=== PATIENT | female | born 1970 | race Caucasian/White ===

== ENCOUNTER 2016-10-23 07:28 | Day surgery (SDC) | payer OTHER ==
[~2016-10-23] VITALS: Ht 165.1 cm; Wt 90.0 kg
[~2016-10-23 07:28] MED LIST: ALBU8.5H2 INHALATION; ALPR0.5T8 PO; ASCO100089 PO; ASPI-973 PO; CHOL500011 PO; CITA20TA11 PO; DOXY100C2 PO; FAMO20TA4 PO; FLUT12AE8 IH; FLUT15.88 NS; HYDR-3825 PO; IPRA0.2S51 IH; LAMO25TA PO; LIP40 PO; Lactated Ringer's 1,000 ML IV ONE; MECL-114 PO
[2016-10-23] MEDS ORDERED: Ketamine 10 mg/mL 20 mL Inj ONE (07:29)
[2016-10-23] MEDS ORDERED: Propofol 10,000 mCg/mL 20 mL Inj ONE (07:29)
[2016-10-23 08:00] VITALS: BP 130/92; PULSE 84; RESP 16; O2SAT 96
--- NOTE | 2016-10-23 08:22 | PCM.HPANE ---
Patient Data Surgeon Admitting Provider: Attending Provider:Tari Herrera MD Primary Care Physician:Yrn Ochoa MD Other Provider:Yuliana Whiting Anesthesia Reason for Visit GERD Ht/WT & BMI Height (Feet): 5 Height (Inches): 5 Weight (Kilograms): 90 Body Mass Index 33.00 Allergies Coded Allergies: red dye (Verified Allergy, Severe, 10/23/16) sulfamethoxazole (Verified Allergy, Severe, Hives, 10/23/16) trimethoprim (Verified Allergy, Severe, Hives, 10/23/16) egg (Verified Allergy, Unknown, 10/23/16) duloxetine (Verified Adverse Reaction, Severe, 10/23/16) out of body feeling ibuprofen (Verified Adverse Reaction, Severe, 10/23/16) irritibility morphine (Verified Adverse Reaction, Severe, 10/23/16) irritibility Past Anesthesia History Anesthesia History: Denies:: Abnormal Airway, Anesthesia Reactions, Difficult Intubation, Fam Anesthesia Reaction, Fam Malignant Hypertherm, Malignant Hyperthermia Diabetes History Hx Diabetes?: No MRSA MRSA: No Medications Blood Thinner: Aspirin Reported Medications Fluticasone Propionate (Flovent HFA 110 mcg)12 Gm Aer.w.adap1 Puff IH BID #12 GM Ref 0 10/22/16 Ascorbic Acid (Vitamin C)1,000 Mg Tab.chew1,000 Mg PO DAILY Ref 0 12/07/15 Albuterol HFA (Proair HFA)8.5 Gm Hfa.aer.ad2 Puffs INHALATION Q4H PRN For Shortness of Breath #1 INHALER 12/07/15 Meclizine (Bonine)25 Mg Tab.chew25 Mg PO TID PRN For Dizziness 12/07/15 Atorvastatin (Lipitor)40 Mg Wdsbuc33 Mg PO DAILY Ref 0 12/07/15 Lamotrigine 25 Mg Kqbsgw60 Mg PO DAILY Ref 0 12/07/15 Hydrocodone-Acetaminophen 7.5-325 mg 1 Each Tablet1 Tablet PO QID PRN For Pain Ref 0 12/07/15 Fluticasone Propionate 50 Mcg/Actuation [place].susp2 [place] NS DAILY 12/07/15 Famotidine 20 Mg Fdrhzx68 Mg PO BID Ref 0 12/07/15 Citalopram 20 Mg Hcasvy93 Mg PO DAILY Ref 0 12/07/15 Cholecalciferol (Vitamin D3) (Vitamin D3)5,000 Unit Tablet5,000 Unit PO DAILY 12/07/15 Aspirin 81 Mg Qipqjh17 Mg PO DAILY Ref 0 12/07/15 Alprazolam 0.5 Mg Tablet0.5 Mg PO TID PRN For Anxiety Ref 0 12/07/15 Discontinued Reported Medications Ipratropium [place] (Ipratropium [place] Inhalant Solution)0.2 Mg/1 Ml Solution3 Ml IH QID Ref 0 10/22/16 Doxycycline Hyclate 100 Mg Rkifaez337 Mg PO BID 10/22/16 History History of ENT Problems?: No HEENT History: Denies:: Abnormal Airway Difficult Intubation Dysphagia Hearing Problem Denture Type: None Teeth Condition: Within Normal Limits Hx of Heart Problems?: Yes Cardiovascular History: Denies:: AICD Pacemaker Valvular Heart Disease Hx of Respiratory Problem?: No Respiratory History: Positive for:: Asthma (OCCASIONAL INHALERS) Pneumonia (INPAST) Denies:: COPD Cough Hemoptysis Tuberculosis Hx Neurologic Problems?: No Neurological History: Denies:: CVA Hx of GI Problems?: Yes Hx of Problems?: No Female Hx: Denies:: Currently (hysto) Hx Musculoskeletal Problems?: No Psycho Social History: Positive for:: Anxiety (ALPRAZALAM) Denies:: Hx Depression Hx Surgeries?: Yes (3 BACK FUSIONS, HYST, ABD CYSTS, L PATELLAR FX, TONSILS, pulmonary emboli) Hx Any Other Health Problems?: Yes Hx Diabetes: No Hx Alcohol Use: No (ONCE A YEAR) Smoking Status: Former Smoker Stop/Bang Treated for Sleep Apnea?: Yes Do You Have a CPAP Machine?: No KENNETH Risk Assessment: High Risk, =/>3 Yes KENNETH Category 2: Yes Risk Assessment Category Category 1A: Patient has history of documented sleep apnea, and HAS NOT received any narcotic, sedative or anesthesia administration during this stay. Category 1B: Patient has history of documented sleep apnea, and HAS received any narcotic , sedative or anesthesia administration during this stay Category 2: Patient has SUSPECTED Obstructive Sleep Apnea, and HAS received any narcotic , sedative or anesthesia administration during this stay. Category 3: Patient has SUSPECTED Obstructive Sleep Apnea and HAS NOT received narcotic, sedative or anesthesia administration during this stay. Category 4: Outpatient in Procedural Areas with known sleep apnea or who screen positive for High Risk via the STOP/BANG questionnaire. Exam Exam Vital Signs Vital Signs Date Time Temp Pulse Resp B/P Pulse Ox O2 Delivery O2 Flow Rate FiO2 10/23/16 08:00 36.5 84 16 130/92 96 Room Air General Appearance: Alert HEENT/AIRWAY: MP 1 Lungs: Clear to Auscultation Heart: Exam Unremarkable Meds/Labs/Diagnostics Admission Meds Current Medications Lactated Ringer's (Lr) 1,000 ml @ 10 mls/hr Q24H ONCE IV Last administered on 10/23/16t 08:15; Start 10/23/16 at 06:00; Stop 10/24/16 at 05:59 Plan Impression Patient chart reviewed, patient interviewed and anesthestic plan with risks, benefits, and alternatives discussed, and informed consent obtained. NPO per Anesth. Guidelines: Yes ASA Physical Status: ASA2 Mod Systemic Disease Anesthetic Plan: MAC Bene/Risks/Altern/Consents: Yes HP Complete Prior to Induction: Yes Camacho Heath MD October 23, 2016 08:22
[2016-10-23] MEDS ORDERED: Lactated Ringer's 1,000 ML IV SCH (08:23)
[2016-10-23] MEDS ORDERED: Ondansetron 2 mg/mL 2 mL Inj IVPUSH PRN (08:25)
[2016-10-23] MEDS ORDERED: MetoCLOpramide 5 mg/mL 2 mL Inj IVPUSH PRN (08:25)
[2016-10-23 09:34] VITALS: BP 137/94; PULSE 87; RESP 14; O2SAT 94
--- NOTE | 2016-10-23 09:43 | PCM.ANEP1 ---
Post Anesthesia Phase 1 PACU Phase 1 Assessment Vital Signs Vital Signs Date Time Temp Pulse Resp B/P Pulse Ox O2 Delivery O2 Flow Rate FiO2 10/23/16 09:34 35.9 87 14 137/94 94 Room Air 10/23/16 08:00 36.5 84 16 130/92 96 Room Air Anesthetic Administered: MAC Level of Alertness: Awake, talking COOPER's with Equal Strength: Yes Pain: No Nausea or Vomiting: No Cardiovascular Function and Hy: Yes Oxygen Delivery: Room Air Lungs: Clear to Auscultation Dermatome Level: Full Sensation Complications: No Follow up Care: No Camacho Heath MD October 23, 2016 09:42
[2016-10-23 09:45] VITALS: BP 148/103; PULSE 79; RESP 14; O2SAT 96
--- NOTE | 2016-10-23 10:14 | ENDO ---
[address] [address] ENDOSCOPY PROCEDURE PATIENT: HEAVENLY PUENTES : 1970 MR#: [id number] ADMIT: 10/23/2016 JOB ID: [id number] DATE OF SERVICE: 10/23/2016 PROCEDURE PERFORMED: Esophagogastroduodenoscopy. INDICATION: Chronic gastroesophageal reflux. PRIMARY CARE PHYSICIAN: Isreal Ochoa MD. ASA CLASSIFICATION, MALLAMPATI SCORE AND MEDICATIONS: The patient's ASA classification, Mallampati score and medications as per the anesthesia note. INSTRUMENT USED: [id number]. PROCEDURE DETAILS: After informed consent was obtained, the patient was brought into the GI suite, where she was placed on oxygen via nasal cannula and monitored with continuous pulse oximeter, telemetry, and blood pressure monitoring. A time-out was performed. Then, she was placed in the left lateral decubitus position, and medications were administered for sedation. A bite block was placed. A standard EGD scope was inserted through the bite block and advanced under direct visualization to the second portion of the duodenum without difficulty. FINDINGS: 1. Normal appearing duodenal bulb, first and second portions. Multiple random biopsies were obtained. 2. Normal appearing pylorus. The antrum and body of stomach appeared unremarkable. 3. Retroflexed views in the gastric body revealed normal appearing cardia and fundus. 4. The GE junction was at approximately 39 cm. At the GE junction itself the Z-line appeared regular. However, just above the Z-line there appeared to be erythema suggestive of esophagitis. Biopsies were not obtained. 5. The remainder of the esophagus otherwise appeared unremarkable. No hiatal hernia was appreciated. IMPRESSION: 1. Mild esophagitis. 2. Otherwise normal exam to second portion of duodenum. RECOMMENDATIONS: 1. Await biopsy results. 2. Start PPI daily. 3. Weight loss encouraged. 4. Reflux precautions. COMPLICATIONS: None. ESTIMATED BLOOD LOSS: Less than 5 mL.
--- NOTE | 2016-10-25 14:51 | PATH ---
SURGICAL PATHOLOGY Attending Physician:Oneyda Mejia CASE STATUS: Signed Out PATIENT NAME: HEAVENLY PUENTES PID: [id number] : 1970 DATE COLLECTED:10/23/2016 22:03 SPECIMEN: 1: Duodenum, Biopsy 2: Gastric, Biopsy CLINICAL HISTORY: 1). DUODENAL BIOPSY 2). RANDOM GASTRIC FINAL DIAGNOSIS: 1. Duodenum, Biopsy: Intestinal mucosa with no diagnostic abnormality. Negative for active inflammation, feature of sprue, dysplasia, and malignancy. 2. Random Gastric Biopsy: Portions of antral and body-type mucosa with no diagnostic abnormality. Negative for Helicobacter organisms by H&E stain. Negative for intestinal metaplasia, dysplasia, and malignancy. ICD10: K29.7 GROSS DESCRIPTION: The specimen is received in two formalin filled containers labeled with the patient's name. 1). The specimen is sublabeled "duodenal" and consists of 2 portions of tissue which aggregate to 0.3 x 0.3 x 0.2 CM. The specimen is entirely submitted in cassette 1A. 2). The specimen is sublabeled "random gastric" and consists of 5 portions of tissue which aggregate to 0.5 x 0.5 x 0.3 CM. The specimen is entirely submitted in cassette 2A. 10/23/2016 [facility] ICD-9 CODES: CPT CODES: 1: 33378 2: 03145 Electronically Signed Out Edilma Ricci MD [facility], [place] [address] Technical component performed at [facility], [address] [place] [address] [address], [place], [address]
== END 2016-10-23 23:59 | disposition home or self-care (01) ==
LOC: END 07:28
PROVIDERS: ATTEND Internal Medicine Gastroenterology
DX: K21.0 Gastro-esophageal reflux disease with esophagitis (principal); K27.9 Peptic ulcer, site unspecified, unspecified as acute or chronic, without hemorrhage or perforation; Z79.899 Other long term (current) drug therapy; Z79.82 Long term (current) use of aspirin; Z87.891 Personal history of nicotine dependence
CPT/HCPCS: 43239; J7120